=== PATIENT | male | born 1985 | race Caucasian/White ===

== ENCOUNTER 2017-02-21 20:52 | Emergency (ER) | payer BC ==
[~2017-02-21] VITALS: Ht 182.9 cm; Wt 99.8 kg
[~2017-02-21 20:52] MED LIST: ACETAMINOPHEN-120 ML PO; AMBEREN; AMOXICILLIN875 MG PO; BENADRYL25 MG PO; CORTISPORIN EY7.5 ML OP; IBUPROFEN 600600 M1 PO; MEDROL DOSPAK21 TAB PO; NOHOMEMEDICATIONS; NORCO 5-325 TA1 EACH PO; PAIN & FEVER325 MG PO; PENICILLIN VK500 M1 PO; PHENERGAN 25 MG25 M1 PO; TYLENOL W/CODEI1 TA2 PO; ULTRAM 50MG TAB50 MG PO; VENTOLIN17 GM INH; ZOFRAN ODT4 MG PO; ZOFRAN4 MG PO
[2017-02-21 21:00] VITALS: BP 131/81
== END 2017-02-21 22:43 | disposition home or self-care (01) ==
LOC: ER 20:52
DX: K08.89 Other specified disorders of teeth and supporting structures (principal); F10.99 Alcohol use, unspecified with unspecified alcohol-induced disorder